=== PATIENT | female | born 1940 | race Caucasian/White ===

== ENCOUNTER 2016-08-21 19:03 | Emergency (ER) | payer MEDICAID ==
[~2016-08-21] VITALS: Ht 147.3 cm; Wt 77.0 kg
[~2016-08-21 19:03] MED LIST: AMLO-145; ASPI-650; CALC500T12; DOCU-29; GABA300C; GLYB1TAB3; HYDR25TA6; IBUP-725; LOSA25TA2; METO100T; OMEP20CA16; PIOG15TA12; SMV40T; TRAZ50TA18
[2016-08-21 19:29] VITALS: Ht 147.3 cm; Wt 77.0 kg
[2016-08-21] MEDS ORDERED: CEPH-443 PO (20:48)
[2016-08-21 20:58] LABS: ADD UMIC YES; URINE BILIRUBIN (Dip) NEGATIVE (NEGATIVE); URINE BLOOD (Dip) NEGATIVE (NEGATIVE); URINE COLOR LT. YELLOW (YELLOW); URINE GLUCOSE (Dip) NEGATIVE (NEGATIVE); URINE KETONES (Dip) NEGATIVE (NEGATIVE); URINE LEUKOCYTE ESTERASE (Dip) 1+ (NEGATIVE); URINE NITRITE (Dip) NEGATIVE (NEGATIVE); URINE TOTAL PROTEIN (Dip) NEGATIVE (NEGATIVE); URINE UROBILINOGEN (Dip) 0.2 E.U./dL (0.1-1.0)
[2016-08-21 21:05] LABS: BACTERIA,URINE FEW; SQUAMOUS EPITHELIAL CELL,UR FEW; URINE RBCS 0-2 /HPF (0)
[2016-08-21] MEDS ORDERED: PHEN-538 PO (21:09)
[2016-08-21] MEDS ORDERED: NITR-58 PO (21:09)
[2016-08-21] MEDS ORDERED: NAPR-260 PO (21:09)
[2016-08-21] MEDS ORDERED: BACTDS PO (21:09)
--- NOTE | 2016-08-21 22:01 | ERD ---
ER Documentation Chief Complaint Date/Time DATE: 08/21/16 TIME: 21:58 Chief Complaint painful urination x 1 month HPI This 75-year-old female presents to the ER for intermittent dysuria for 1 month. Also has some suprapubic discomfort. Denies any altered mental status, fevers or chills. Patient is alone is a high functioning 75-year-old who cares for herself and is still able to drive. ROS All systems reviewed and are negative except as per history of present illness. Medications Home Meds Active Scripts Naproxen* (Naprosyn*) 500 Mg Tablet, 500 MG PO BID, #14 TAB Prov:MAZIN MURPHY PA-C 08/21/16 Phenazopyridine Hcl* (Pyridium*) 200 Mg Tab, 200 MG PO TID Y for URINARY PAIN, # 6 TAB Prov:MAZIN MURPHY PA-C 08/21/16 Sulfamethoxazole-Trimethoprim* (Bactrim* DS) 800-160 Mg Tab, 1 TAB PO BID for 7 Days, TAB Prov:MAZIN MURPHYC 08/21/16 Nitrofurantoin Monohyd Macrocr* (Macrobid*) 100 Mg Capsr, 100 MG PO BID for 7 Days, CAP Prov:MAZIN MURPHY PA-C 08/21/16 Reported Medications Hydrochlorothiazide (Hydrochlorothiazide) 25 Mg Tablet 10/15/10 Simvastatin (Simvastatin) 40 Mg Tablet 10/15/10 Calcium Carbonate* (Oysco-500*) 1 Tab Tablet 10/15/10 Docusate Sodium (Dss) 100 Mg Capsule 10/15/10 Aspirin (Aspirin) 81 Mg Tablet 10/15/10 Trazodone Hcl* (Desyrel*) 50 Mg Tablet 10/15/10 Omeprazole* (Omeprazole*) 20 Mg Capsule. 10/15/10 Ibuprofen (Motrin) 400 Mg Tablet 10/15/10 Metoprolol (Lopressor) 100 Mg Tablet 10/15/10 Losartan Potassium* (Cozaar*) 25 Mg Tablet 10/15/10 Gabapentin* (Neurontin*) 300 Mg Capsule 10/15/10 Amlodipine Besylate* (Amlodipine Besylate*) 5 Mg Tablet 10/15/10 Glyburide, Micro-Metformin Hcl (Glucovance) 1 Tab Tablet 10/15/10 Pioglitazone Hcl* (Actos*) 15 Mg Tablet 10/15/10 Allergies Allergies: Coded Allergies: No Known Allergy (Verified , 08/21/16) PMhx/Soc History of Surgery: Yes (Appendectomy) Anesthesia Reaction: No Hx Neurological Disorder: Yes (NEUROPATHY) Hx Respiratory Disorders: No Hx Cardiac Disorders: Yes (HYPERTENSION) Hx Psychiatric Problems: No Hx Miscellaneous Medical Probl: Yes (DM) Hx Alcohol Use: No Hx Substance Use: No Hx Tobacco Use: No Smoking Status: Never smoker Physical Exam Vitals Vital Signs Date Time Temp Pulse Resp B/P Pulse Ox O2 Delivery O2 Flow Rate FiO2 08/21/16 19:29 97.3 83 20 158/69 98 Physical Exam Const: [] No distress Head: Atraumatic Abd: Soft, mild suprapubic tenderness without guarding or rebound, non distended. Normal bowel sounds Skin: No petechiae or rashes Back: No midline or flank tenderness Ext: No cyanosis, or edema Neur: Awake and alert and oriented 3, creatinine is 2 through 12 intact, no cerebellar deficits, normal gait Results 24 hrs Laboratory Tests Test 08/21/16 20:30 Urine Bacteria FEW Urine Bilirubin NEGATIVE Urine Clarity SLIGHTLY CLOUDY Urine Color LT. YELLOW Urine Glucose NEGATIVE% Urine Hemoglobin NEGATIVE Urine Ketones NEGATIVE Urine Leukocyte Esterase 1+ Urine Microscopic RBC 0-2/HPF Urine Microscopic WBC 10-25/HPF Urine Nitrite NEGATIVE Urine Specific [place] 1.010 Urine Squamous Epithelial Cells FEW Urine Total Protein NEGATIVE Urine Urobilinogen 0.2 E.U./dL Urine pH 5.5 Procedures/MDM Bladder infection and elderly female. She is very high functioning and has no other symptoms besides from the dysuria and mild supra pubic tenderness. Because of the age I will treated with 70 course of Cipro and Macrobid. I am also giving Pyridium and ibuprofen for comfort. Patient has stable vital signs and no signs of sepsis or overwhelming infection or even a systemic infection at this point. Primary care follow-up in 2-3 days and return precautions to the ER for any fevers or any other concerning symptoms. Departure Diagnosis: Primary Impression: UTI (urinary tract infection) Urinary tract infection type: acute cystitis Hematuria presence: with hematuria Qualified Code: N30.01 - Acute cystitis with hematuria Condition: Stable Patient Instructions: Understanding Urinary Tract Infections (UTIs) Referrals: DOCTOR,NOT ON STAFF (PCP) [facility] ([facility]) Usted se sandy hecho un examen mdico de control que le indica que no est en orlin condicin que requiera tratamiento urgente en el Departamento de Emergencia. Un estudio ms profundo y el tratamiento de marques condicin pueden esperar sin ningn riesgo hasta que usted sea atendida/o en el consultorio de marques mdico o orlin cl song. Es responsabilidad suya arreglar orlin terra para el seguimiento del cortez. MANEJO DE CONDICIONES NO URGENTES EN EL FUTURO 1) Si usted tiene un mdico de atencin primaria: Usted debera llamar a marques mdico de atencin primaria antes de venir al departamento de emergencia. Despus de las horas de consultorio, marques doctor o marques asociado/a est disponible por telfono. El mdico o enfermero de gui en el servicio telefnico puede asesorarle por altaf medio para atender el problema, o cortez contrario se puede programar orlin terra. 2) Si usted no tiene un mdico de atencin primaria: Llame al mdico o clnica de referencia que aparece abajo channing las horas de consultorio para hacer orlin terra para que le vean. CLINICAS: [facility] [phone] [facility] [phone] [facility] [phone] [facility]. [facility] [phone] [facility]. [place] [phone] [facility]. [phone] [address] Additional Instructions: Visite a marques mdico maana para un EXAMEN.Regrese a estas instalaciones si no se mejora lianna esperbamos o lianna le dijimos. [place] toda la medicina pito y lianna se le indic. Regrese a estas instalaciones si no se mejora lianna esperbamos o lianna le dijimos. EFRAIN CRESPO DO Aug 21, 2016 22:01
[2016-08-21 22:07] VITALS: BP 152/65; PULSE 75; RESP 16; TEMP 98.5
== END 2016-08-21 22:09 | disposition home or self-care (01) ==
LOC: FTE 19:03
DX: N30.01 Acute cystitis with hematuria (principal); I10 Essential (primary) hypertension; E11.9 Type 2 diabetes mellitus without complications; Z79.82 Long term (current) use of aspirin; Z79.84 Long term (current) use of oral hypoglycemic drugs
CPT/HCPCS: 81001; 87086; Z7502; 81003; 99284

== ENCOUNTER 2016-09-13 18:03 | Emergency (ER) | payer MEDICAID ==
[~2016-09-13] VITALS: Wt 70.3 kg
[~2016-09-13 18:03] MED LIST changes: +BACTDS PO; +NAPR-260 PO; +NITR-58 PO; +PHEN-538 PO
[2016-09-13] MEDS ORDERED: DIPHTH/TET/ACEL PERTUSS (ADULT) 0.5 ML VIAL IM* ONE (20:00)
[2016-09-13] MEDS ORDERED: LIDOCAINE 1% (MDV) 20 ML INJ SC ONE (20:00)
--- NOTE | 2016-09-13 20:51 | RADRPT ---
PROCEDURE: XR Left index finger CLINICAL INDICATION: Pain rule out fracture TECHNIQUE: AP, oblique, and lateral radiographs were submitted. COMPARISON: None FINDINGS: Osseous structures: appear well mineralized and intact with no fracture or destructive process iden tified. Joint spaces: Mild degenerative changes seen about the proximal and distal interphalangeal joints of the left index finger. Soft tissues: appear unremarkable. IMPRESSION: 1. Mild degenerative change seen about the proximal and to a lesser extent distal interphalangeal j oints of the left index finger. 2. No fracture is identified. Physician Angelina Date Time Electronically viewed and signed by Physician Angelina on 09/13/2016 20:51 /
[2016-09-13 21:19] VITALS: BP 146/72; PULSE 77; RESP 20; TEMP 98.1
--- NOTE | 2016-09-13 21:33 | ERD ---
ER Documentation Chief Complaint Date/Time DATE: 09/13/16 TIME: 21:31 Chief Complaint L INDEX FINGER LACERATION FROM OPENING A CAN NO ACTIVE BLEEDING NOTED. HPI This is a 75-year-old female presenting to the emergency room with a nail laceration on the left index finger from opening a can at 4 PM. Patient states the pain is minimal. She denies any active bleeding. She does not member her last tetanus shot. ROS All systems reviewed and are negative except as per history of present illness. Medications Home Meds Active Scripts Naproxen* (Naprosyn*) 500 Mg Tablet, 500 MG PO BID, #14 TAB Prov:MAZIN MURPHY PA-C 08/21/16 Phenazopyridine Hcl* (Pyridium*) 200 Mg Tab, 200 MG PO TID Y for URINARY PAIN, # 6 TAB Prov:MAZIN MURPHY PA-C 08/21/16 Sulfamethoxazole-Trimethoprim* (Bactrim* DS) 800-160 Mg Tab, 1 TAB PO BID for 7 Days, TAB Prov:MAZIN MURPHY PA-C 08/21/16 Nitrofurantoin Monohyd Macrocr* (Macrobid*) 100 Mg Capsr, 100 MG PO BID for 7 Days, CAP Prov:MAZIN MURPHY PA-C 08/21/16 Reported Medications Hydrochlorothiazide (Hydrochlorothiazide) 25 Mg Tablet 10/15/10 Simvastatin (Simvastatin) 40 Mg Tablet 10/15/10 Calcium Carbonate* (Oysco-500*) 1 Tab Tablet 10/15/10 Docusate Sodium (Dss) 100 Mg Capsule 10/15/10 Aspirin (Aspirin) 81 Mg Tablet 10/15/10 Trazodone Hcl* (Desyrel*) 50 Mg Tablet 10/15/10 Omeprazole* (Omeprazole*) 20 Mg Capsule. 10/15/10 Ibuprofen (Motrin) 400 Mg Tablet 10/15/10 Metoprolol (Lopressor) 100 Mg Tablet 10/15/10 Losartan Potassium* (Cozaar*) 25 Mg Tablet 10/15/10 Gabapentin* (Neurontin*) 300 Mg Capsule 10/15/10 Amlodipine Besylate* (Amlodipine Besylate*) 5 Mg Tablet 10/15/10 Glyburide, Micro-Metformin Hcl (Glucovance) 1 Tab Tablet 10/15/10 Pioglitazone Hcl* (Actos*) 15 Mg Tablet 10/15/10 Allergies Allergies: Coded Allergies: No Known Allergy (Verified , 08/21/16) PMhx/Soc History of Surgery: Yes (Appendectomy) Anesthesia Reaction: No Hx Neurological Disorder: Yes (NEUROPATHY) Hx Respiratory Disorders: No Hx Cardiac Disorders: Yes (HYPERTENSION) Hx Psychiatric Problems: No Hx Miscellaneous Medical Probl: Yes (DM) Hx Alcohol Use: No Hx Substance Use: No Hx Tobacco Use: No Physical Exam Vitals Vital Signs Date Time Temp Pulse Resp B/P Pulse Ox O2 Delivery O2 Flow Rate FiO2 09/13/16 21:19 98.1 77 20 146/72 99 Room Air 09/13/16 18:18 97.6 86 20 144/70 99 Physical Exam General: WD/WN, in no apparent distress, non-toxic appearing HENT: NC/AT Eyes: Conjunctiva normal Neck: Supple Pulm: Clear to auscultation, normal labored breathing; no wheezing/rales/ rhonchi heard CV: Good capillary refill GI: Non-distended, no guarding Back: No masses Ext: No clubbing, cyanosis, or edema Neuro: Moves on all fours Skin: Partial nail avulsion on the left index finger Psych: Normal mood Results 24 hrs Current Medications Medications (Trade) Dose Ordered Sig/Alva Route PRN Reason Start Time Stop Time Status Last Admin Dose Admin Diphtheria/ Tetanus/Acell Pertussis (Adacel) 0.5 ml ONCE ONCE IM* 09/13/16 20:00 09/13/16 20:02 DC 09/13/16 20:21 Lidocaine (Xylocaine 1% (Mdv) 20 ml) 20 ml ONCE ONCE SC 09/13/16 20:00 09/13/16 20:02 DC Procedures/MDM This is a 75-year-old female presenting to the emergency department complaining of partial left index 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 It is very superficial and does not require any sutures. An x-ray of the finger was done did not show any foreign body, fracture or dislocation. The wound was cleansed with copious amount of Betadine and normal saline, dressing was applied. Patient is neurovascular intact. Discussed to follow-up with primary care physician for further action management. Discussed return the ER for any worsening symptoms. Patient understood and agreed plan. Departure Diagnosis: Primary Impression: Nail avulsion, finger Additional Impression: Laceration Condition: Stable Patient Instructions: Laceration, All, Nail Avulsion, Partial Referrals: [facility] Additional Instructions: Visite a avila jason hull para un EXAMEN.Regrese a estas instalaciones si no se mejora lianna esperbamos o lianna le dijimos. [place] toda la medicina pito y lianna se le indic. Regrese a estas instalaciones si no se mejora ilanna esperbamos o lianna le dijimos. MAZIN MURPHY PA-C Sep 13, 2016 21:33
== END 2016-09-13 21:20 | disposition home or self-care (01) ==
LOC: FTE 18:03
DX: S61.211A Laceration without foreign body of left index finger without damage to nail, initial encounter (principal); I10 Essential (primary) hypertension; E11.9 Type 2 diabetes mellitus without complications; W22.8XXA Striking against or struck by other objects, initial encounter; Y92.9 Unspecified place or not applicable; Z23 Encounter for immunization; Z79.82 Long term (current) use of aspirin; Z79.84 Long term (current) use of oral hypoglycemic drugs
CPT/HCPCS: 73140; 90471; 90715; Z7502; Z7610

== ENCOUNTER 2018-05-18 18:23 | Emergency (ER) | END 2018-05-18 22:13 | disposition home or self-care (01) ==

== ENCOUNTER 2018-12-26 10:27 | Emergency (ER) | payer MEDICAID ==
[~2018-12-26] VITALS: Ht 147.3 cm; Wt 69.0 kg
[~2018-12-26 10:27] MED LIST changes: +CEPH-443 PO; -NAPR-260 PO; +NAPR-985 PO; +PHEN-537 PO; +SIMV40TA3; -SMV40T; +TRA50; -TRAZ50TA18
[2018-12-26 10:31] VITALS: Ht 147.3 cm; Wt 69.0 kg
--- NOTE | 2018-12-26 10:53 | ERD ---
ER Documentation Chief Complaint Chief Complaint painful urination; headache HPI 78-year-old female with a history of recurrent urinary tract infections presents with signs and symptoms consistent with her urinary tract infection. She describes some mild suprapubic discomfort with dysuria urgency and frequency. Patient also describes a gradual onset very mild headache. No flank pain no fevers or chills. Patient has been treated with antibiotics in the past. She denies any significant abdominal pain, nausea vomiting or diarrhea. No constipation. ROS All systems reviewed and are negative except as per history of present illness. Medications Home Meds Active Scripts Nitrofurantoin Monohyd Macrocr* (Macrobid*) 100 Mg Capsr, 100 MG PO BID for 5 Days, CAP Prov:SUNIL IZQUIERDO MD 12/26/18 Reported Medications Omeprazole* (Omeprazole*) 20 Mg Capsule.dr, 20 MG PO BID, #60 CAP 12/26/18 Losartan Potassium* (Losartan Potassium*) 50 Mg Tablet, 50 MG PO DAILY, TAB 12/26/18 Glimepiride* (Glimepiride*) 4 Mg Tablet, 4 MG PO WITH BREAKFAST DINNE, TAB 12/26/18 Metformin Hcl* (Metformin Hcl*) 1,000 Mg Tablet, 1000 MG PO WITH BREAKFAST DINNE, #60 TAB 12/26/18 Nifedipine* (Nifedipine ER*) 90 Mg Tablet.er, 90 MG PO DAILY, TAB 12/26/18 Calcium Carbonate/Vitamin D3 (Oysco 500+D Tablet) 1 Each Tablet, 1 EACH PO BID, TAB 12/26/18 Atorvastatin* (Atorvastatin*) 40 Mg Tablet, 40 MG PO QHS, #30 TAB 12/26/18 Pioglitazone Hcl* (Pioglitazone Hcl*) 15 Mg Tablet, 15 MG PO DAILY, TAB 12/26/18 Ferrous Sulfate* (Ferrous Sulfate*) 325 Mg Tabec, 325 MG PO BID, TAB 12/26/18 Levothyroxine Sodium* (Levothyroxine Sodium*) 50 Mcg Tablet, 50 MCG PO BEFORE BREAKFAST, #30 TAB 12/26/18 Empagliflozin (Jardiance) 25 Mg Tablet, 25 MG PO QAM, TAB 12/26/18 Duloxetine Hcl* (Duloxetine Hcl*) 30 Mg Capsule.dr, 30 MG PO DAILY, #30 CAP 12/26/18 Gabapentin* (Gabapentin*) 300 Mg Capsule, 300 MG PO DAILY, #60 CAP 12/26/18 Aspirin* (Aspirin* EC) 81 Mg Tablet., 81 MG PO DAILY, TAB 12/26/18 Discontinued Reported Medications Hydrochlorothiazide (Hydrochlorothiazide) 25 Mg Tablet 10/15/10 Simvastatin (Simvastatin) 40 Mg Tablet 10/15/10 Calcium Carbonate* (Oysco-500*) 1 Tab Tablet 10/15/10 Docusate Sodium (Dss) 100 Mg Capsule 10/15/10 Aspirin (Aspirin) 81 Mg Tablet 10/15/10 Trazodone Hcl* (Desyrel*) 50 Mg Tablet 10/15/10 Omeprazole* (Omeprazole*) 20 Mg Capsule. 10/15/10 Ibuprofen (Motrin) 400 Mg Tablet 10/15/10 Metoprolol (Lopressor) 100 Mg Tablet 10/15/10 Losartan Potassium* (Cozaar*) 25 Mg Tablet 10/15/10 Gabapentin* (Neurontin*) 300 Mg Capsule 10/15/10 Amlodipine Besylate* (Amlodipine Besylate*) 5 Mg Tablet 10/15/10 Glyburide, Micro-Metformin Hcl (Glucovance) 1 Tab Tablet 10/15/10 Pioglitazone Hcl* (Actos*) 15 Mg Tablet 10/15/10 Discontinued Scripts Phenazopyridine Hcl* (Pyridium*) 100 Mg Tab, 100 MG PO TID PRN for URINARY PAIN, #8 TAB Prov:NUBIA HUGHES MD 05/18/18 Cephalexin* (Keflex*) 500 Mg Capsule, 500 MG PO QID for 10 Days, #40 CAP Prov:NUBIA HUGHES MD 05/18/18 Phenazopyridine Hcl* (Pyridium*) 200 Mg Tab, 200 MG PO TID PRN for URINARY PAIN, #6 TAB Prov:MAZIN MURPHY PA-C 03/20/17 Naproxen* (Naprosyn*) 500 Mg Tablet, 500 MG PO BID, #14 TAB Prov:MAZIN MURPHY PA-C 08/21/16 Phenazopyridine Hcl* (Pyridium*) 200 Mg Tab, 200 MG PO TID PRN for URINARY PAIN, #6 TAB Prov:MAZIN MURPHY PA-C 08/21/16 Sulfamethoxazole-Trimethoprim* (Bactrim* DS) 800-160 Mg Tab, 1 TAB PO BID for 7 Days, TAB Prov:MAZIN MURPHY PA-C 08/21/16 Nitrofurantoin Monohyd Macrocr* (Macrobid*) 100 Mg Capsr, 100 MG PO BID for 7 Days, CAP Prov:MAZIN MURPHY PA-C 08/21/16 Allergies Allergies: Coded Allergies: No Known Allergy (Verified , 12/26/18) PMhx/Soc History of Surgery: Yes (Appendectomy) Anesthesia Reaction: No Hx Neurological Disorder: Yes (NEUROPATHY) Hx Respiratory Disorders: No Hx Cardiac Disorders: Yes (HYPERTENSION) Hx Psychiatric Problems: No Hx Miscellaneous Medical Probl: Yes (DM) Hx Alcohol Use: No Hx Substance Use: No Hx Tobacco Use: No Smoking Status: Never smoker FmHx Family History: No diabetes Physical Exam Vitals Vital Signs Date Temp Pulse Resp B/P (MAP) Pulse Ox O2 O2 Flow FiO2 Time Delivery Rate 12/26/18 98.2 88 24 131/62 97 10:31 (85) Physical Exam General: Well developed, well nourished, no acute distress Head: Normocephalic, atraumatic. Eyes: Pupils equally reactive, EOM intact ENT: Moist mucous membranes Neck: Supple, no lymphadenopathy Respiratory: Lungs clear bilaterally, no distress Cardiovascular: RRR, no murmurs, rubs, or gallops Abdominal: Soft, very mild suprapubic tenderness without rebound or guarding, non-distended, no peritoneal signs, negative Walters sign, no tenderness to McBurney's point : Deferred MSK: No edema, no unilateral swelling, 5/5 strength Neurologic: Alert and oriented, moving all extremities, normal speech, no focal weakness, no cerebellar signs Skin: No rash Psych: Normal mood Results 24 hrs Laboratory Tests Test 12/26/18 11:37 Bedside Urine pH (LAB) 6.0 Bedside Urine Protein (LAB) Negative Bedside Urine Glucose (UA) 0.50% Bedside Urine Ketones (LAB) Negative Bedside Urine Blood Negative Bedside Urine Nitrite (LAB) Negative Bedside Urine Leukocyte Esterase (L Negative Procedures/MDM LAB INTERPRETATION: Urine dip reassuring with the patient's urinalysis in the past only usually has leukocyte esterase but has also been negative for nitrate and leukocyte esterase. MEDICAL DECISION MAKING: Clinical exam signs and symptoms very consistent with uncomplicated acute cystitis. Reviewing patient's prior cultures, the patient most recently had E. coli, sensitive to Macrobid. Patient exhibits no signs or symptoms concerning for alternative acute intraabdominal process. Given the patient's age I would have a low threshold for telemetry testing or diagnostic imaging of the patient's presentation is very similar to episodes in the past. Patient otherwise has a benign exam with normal vital signs and without systemic signs or symptoms. Therefore I believe further laboratory testing or diagnostic imaging is not necessary. CONSULTATION: None DISPOSITION PLAN: The patient does not have an identifiable emergent medical condition that warrants inpatient hospitalization at this time. The patient is deemed safe for discharge with outpatient follow-up. We discussed follow up with the patient's primary care doctor within 24 to 48 hours as needed. We also discussed return to the emergency room for worsening symptoms or worsening condition. Outpatient referral: None required Discharge Medications: Macrobid Departure Diagnosis: Primary Impression: Acute cystitis Hematuria presence: without hematuria Qualified Codes: N30.00 - Acute cystitis without hematuria Condition: SUNIL Tineo MD Dec 26, 2018 10:53
[2018-12-26] MEDS ORDERED: NITR-58 PO (10:55)
[2018-12-26] MEDS ORDERED: ASPI-817 PO (11:26)
[2018-12-26] MEDS ORDERED: DULO30CA47 PO (11:27)
[2018-12-26] MEDS ORDERED: GABA300C16 PO (11:27)
[2018-12-26] MEDS ORDERED: LEVO50TA7 PO (11:28)
[2018-12-26] MEDS ORDERED: EMPA25TA PO (11:28)
[2018-12-26] MEDS ORDERED: FER325 PO (11:29)
[2018-12-26] MEDS ORDERED: PIOG15TA67 PO (11:29)
[2018-12-26] MEDS ORDERED: CALC1TAB79 PO (11:30)
[2018-12-26] MEDS ORDERED: ATOR40TA68 PO (11:30)
[2018-12-26] MEDS ORDERED: METF100010 PO (11:31)
[2018-12-26] MEDS ORDERED: NIFE90TA11 PO (11:31)
[2018-12-26] MEDS ORDERED: GLIM4TAB PO (11:32)
[2018-12-26] MEDS ORDERED: LOSA50TA14 PO (11:32)
[2018-12-26] MEDS ORDERED: OMEP20CA16 PO (11:33)
[2018-12-26 11:48] VITALS: BP 130/86; PULSE 65; RESP 20
== END 2018-12-26 11:50 | disposition home or self-care (01) ==
LOC: E/R 10:27
DX: N30.00 Acute cystitis without hematuria (principal); I10 Essential (primary) hypertension; E11.9 Type 2 diabetes mellitus without complications; Z79.84 Long term (current) use of oral hypoglycemic drugs; Z79.82 Long term (current) use of aspirin
CPT/HCPCS: 81003; 87086; Z7502; 99283